=== PATIENT | male | born 1965 | race Caucasian/White ===

== ENCOUNTER 2023-09-19 09:32 | Outpatient (CLI) | payer BC, SELFPAY ==
--- NOTE | ~2023-09-19 | MR_ITS ---
MRI of the left knee Clinical history: Pain Technique: Coronal proton density and proton density-weighted images, sagittal proton-density and T2 fat-sat images, and axial proton-density fat-saturated images were acquired. Findings: Anterior and posterior cruciate ligaments are intact. Medial collateral ligament and the la teral collateral ligament complex are intact. Popliteus tendon is intact. Medial and lateral menisci are intact, without evidence of tear. Articular cartilage is relatively well preserved throughout the knee. Bone marrow signals are unremar kable. Extensor mechanism is intact. There is tendinosis of the proximal patellar tendon. No significant devaugnh nt effusion or Hernandez's cyst. There is nonspecific subcutaneous soft tissue edema about the knee. Impression: Tendinosis of the proximal patellar tendon. Nonspecific subcutaneous soft tissue edema about the knee. Reviewed, dictated and finalized at [facility]. Impression: Tendinosis of the proximal patellar tendon. Nonspecific subcutaneous soft tissue edema about the knee.
== END 2023-09-19 09:33 ==
PROVIDERS: PCP Internal Medicine; Visit Provider Internal Medicine
DX: M25.562 Pain in left knee (principal)
CPT/HCPCS: 73721